=== PATIENT | female | born 1950 | race Asian ===

== ENCOUNTER 2017-10-08 18:11 | Emergency (ER) | payer OTHER ==
--- NOTE | 2017-10-09 16:53 | EDPHY ---
H & P Time Seen by Provider: 10/08/17 19:40 HPI/ROS: CHIEF COMPLAINT: Left wrist injury HISTORY OF PRESENT ILLNESS: 67-year-old female presents to the emergency department with her friend after she tripped stepping off the curb and injuring her left wrist when she fell. She did not hit her head or lose consciousness. Denies neck or back pain. Denies chest pain or difficulty breathing. Denies paresthesias in upper or lower extremities. Denies symptoms in the right upper extremity or in her lower extremities bilaterally. She is right-hand dominant. She has pain in her left wrist especially with movement. She denies any pain in her left elbow or shoulder. The incident happened just prior to arrival. REVIEW OF SYSTEMS: Constitutional: No fever, no chills. Eyes: No double or blurry vision. ENT: No sore throat. Respiratory: No cough, no shortness of breath. Cardiac: No chest pain. Gastrointestinal: No abdominal pain, vomiting or diarrhea. Genitourinary: No dysuria. Musculoskeletal: No neck or back pain. Skin: No rashes. Neurological: No headache. (Jenni Zayas) Past Medical/Surgical History: See nurse's notes. (Jenni Zayas) Social History: (Jenni Zayas) Physical Exam: General Appearance: Alert, no distress. No visible signs of trauma to her head. She is mentating normally and answering questions appropriately. Patient is [place] speaking only although she does understand some Arabic. Her friend at bedside is a [place] medicine doctor and is helping to interpret. Eyes: Pupils equal and round. Extraocular motions are all intact. ENT: Mouth: Mucous membranes moist. Respiratory: No wheezing, rhonchi, or rales, lungs are clear to auscultation. Cardiovascular: Regular rate and rhythm. Gastrointestinal: Abdomen is soft and nontender, no masses, no rebound or guarding, bowel sounds normal. Neurological: Alert and oriented x 3, cranial nerves II through XII grossly intact Skin: Warm and dry, no rashes. Musculoskeletal: Nontender to palpate along the cervical, thoracic or lumbar spine. Neck is supple. Extremities: Deformity noticed to the left wrist. Tenderness with palpation over the left wrist. Limited supination. Full flexion and extension of the left elbow. Nontender to palpate the left elbow or left shoulder. Normal sensation to light touch with normal 2 point discrimination. Strong radial pulse at the left wrist. Full range of motion of the right upper extremity and lower extremities bilaterally Psychiatric: Patient is oriented X 3, there is no agitation. (Jenni Zayas) Allergies/Adverse Reactions: No Known Allergies Allergy (Unverified 04/18/11 09:43) Home Medications: Medication Instructions Recorded Hydrocodone/APAP 5/325 [[place] 1 - 2 tab PO Q4PRN #20 tab 04/18/11 5/325 (*)] Ketorolac 0.5% [Acular] 2 drops EACHEYE Q6-8PRN PRN #1 04/18/11 No Medications [NO HOME 1 ea MISC 04/18/11 MEDICATIONS] Medical Decision Making - Diagnostics Imaging: I viewed and interpreted images myself - Diagnostics Imaging Results: X-rays of the left wrist reveal intra-articular distal radius fracture with mild displacement and ulnar styloid fracture. This is reviewed by myself the PAC system as well as with Dr. Gio Irwin. Radiology interpretation to follow. (Jenni Zayas) Procedures: Patient was placed in Ortho Glass sugar-tong splint and sling and examined post application in good placement with normal TECHNICAL ILLUSTRATOR. (Jenni Zayas) ED Course/Re-evaluation: 67-year-old female presents emergency department with left wrist injury. X- rays reveal intra-articular distal radius fracture as well as ulnar styloid fracture. This was discussed with Dr. Gio Irwin, secondary supervising physician, who also evaluated the patient's x-rays and agrees that reduction is not necessary. The patient will be placed in Ortho Glass sugar-tong splint and given orthopedic referral. (Jenni Zayas) I did not see this patient while she was in the emergency department. However her care was discussed with the PA while the patient was in the department. I reviewed the x-rays with the PA. I agree with treatment plan and management ( Gio Irwin) Differential Diagnosis: Including but not limited to fracture, dislocation, contusion, sprain (Jenni Zayas) Departure - Departure Disposition: Home, Routine, Self-Care Clinical Impression: Left wrist fracture Qualifiers: Encounter type: initial encounter Fracture type: closed Qualified Code(s): S62.102A - Fracture of unspecified carpal bone, left wrist, initial encounter for closed fracture Condition: Good Instructions: Wrist Fracture in Adults (ED) Additional Instructions: Keep splint and sling on until follow-up with orthopedic surgeon. Ibuprofen 600 mg every 8 hr as needed for pain. Ice and elevate to help reduce swelling. Referrals: Sheela Mccann MD [Primary Care Provider] - As per Instructions James Christensen MD [Medical Doctor] - 2-3 days without fail (Orthopedic surgeon on-call) Stand Alone Forms: Work Excuse
== END 2017-10-08 19:45 | disposition home or self-care (01) ==
DX: S52.572A Other intraarticular fracture of lower end of left radius, initial encounter for closed fracture (principal); W01.0XXA Fall on same level from slipping, tripping and stumbling without subsequent striking against object, initial encounter

== ENCOUNTER → 2018-01-28 | Outpatient (CLI) | payer OTHER | LOC: CIMAGING 13:25 | PROVIDERS: ATTEND Orthopaedic Surgery Hand Surgery | DX: Z09 Encounter for follow-up examination after completed treatment for conditions other than malignant neoplasm (principal); Z98.890 Other specified postprocedural states; M81.0 Age-related osteoporosis without current pathological fracture | CPT/HCPCS: 73200-PO ==

== ENCOUNTER → 2018-01-29 | Outpatient (CLI) | payer OTHER | LOC: CED 08:17 | PROVIDERS: ATTEND Orthopaedic Surgery Hand Surgery | DX: M25.532 Pain in left wrist (principal) | CPT/HCPCS: 73200-PO ==